=== PATIENT | male | born 1990 | race Caucasian/White ===

== ENCOUNTER 2023-08-01 22:05 | Inpatient (IN) | payer SELFPAY ==
[2023-08-01] MEDS ORDERED: Nitroglycerin 0.4 MG TAB (25 Tab Bottle) ONE (22:20)
[2023-08-01] MEDS ORDERED: Ipratropium/Albuterol 3 ML NEB ONE ×4 (22:20→23:31)
[2023-08-01] MEDS ORDERED: Albuterol 2.5 MG (3 mL) NEB ONE ×2 (22:22→23:32)
[2023-08-01 22:36] LABS: #Basophils 0.07 10x3/uL (0.0-0.2); %Basophils 0.5 % (0.0-1.0); %Eosinophils 2.1 % (0.0-10.0); %Lymphocytes 23.9 % (21.0-51.0); %Monocytes 6.8 % (0.0-10.0); %Neutrophils 66.4 % (42.0-75.0); Hematocrit 49.2 % (42.0-52.0); Hemoglobin 16.8 g/dL (14.0-18.0); Mean Corpuscular HGB CONC 34.1 g/dL (32.0-36.0); Mean Corpuscular Hemoglobin 29.3 pg (27.0-31.0); Mean Corpuscular Volume 85.7 fL (78.0-98.0); Mean Platelet Volume 9.9 fL (7.4-10.4); Platelet Count 288 10x3/uL (130-400); RBC Distribution Width 13.4 % (11.5-14.5); Red Blood Cell (RBC) Count 5.74 mill/uL (4.70-6.10)
[2023-08-01] MEDS ORDERED: Azithromycin 250 MG TAB ONE (22:56)
[2023-08-01] MEDS ORDERED: cefTRIAXone (ROCEPHIN) 1 GM VIAL ONE (22:56)
[2023-08-01] MEDS ORDERED: Sodium Chloride 0.9% 100 ML ONE (22:56)
[2023-08-01 22:59] LABS: ALT (SGPT) 57 U/L (8-55); AST (SGOT) 42 U/L (5-34); Albumin 3.8 g/dL (3.5-5.0); Alkaline Phosphatase 80 U/L (40-110); Anion Gap 13 mmol/L (10-20); BUN (Urea Nitrogen) 18 mg/dL (8.9-20.6); Bilirubin, Total 1.4 mg/dL (0.2-1.2); Calc. Creatinine Clearance 0 mL/min (70-130); Calcium 9.3 mg/dL (7.8-10.44); Carbon Dioxide 27 mmol/L (22-29); Chloride 101 mmol/L (98-107); Estimated GFR 54; Globulin 4.2 g/dL (2.4-3.5); Glucose 135 mg/dL (70-105); Lipase 15 U/L (8-78); Potassium 3.6 mmol/L (3.5-5.1); Sodium 137 mmol/L (136-145)
[2023-08-01 23:01] LABS: Troponin I 0.075 ng/mL (< 0.028)
[2023-08-01] MEDS ORDERED: Aspirin Chewable 81 MG TAB ONE (23:14)
[2023-08-01] MEDS ORDERED: Furosemide 40 MG (4 mL) VIAL ONE (23:34)
[2023-08-02] MEDS ORDERED: Labetalol HCl 100 MG/20 ML VIAL ONE (01:13)
[2023-08-02 01:44] LABS: Troponin I 0.054 ng/mL (< 0.028)
[2023-08-02] MEDS ORDERED: Dextrose 50% Abboject 50 ML SYRINGE SLOW IVP PRN (01:47)
[2023-08-02] MEDS ORDERED: HumaLOG 300 UNITS/3 ML VIAL SC PRN (01:47)
[2023-08-02] MEDS ORDERED: Glucagon 1 MG/ML KIT IM PRN (01:47)
[2023-08-02] MEDS ORDERED: Dextrose 5% in Water 1,000 ML IV PRN (01:47)
[2023-08-02] MEDS ORDERED: hydrALAZINE 25 MG TAB PO PRN (01:49)
[2023-08-02 02:17] VITALS: BMI 53.7
[2023-08-02] MEDS: cefTRIAXone\\ROCEPHIN 1 GM in Sodium Chloride 0.9% 100 ML IVPB SCH (02:44)
[2023-08-02 02:59] LABS: Base Excess -0.6 mEq/L (-2.0 to +3.0); Calcium, Ionized (venous) 1.09 mmol/L (1.16-1.32); Chloride (VBG) 100 mmol/L (98-106); Hematocrit-VBG 47 % (42.0-52.0); Hemoglobin (Hb) 15.9 g/dL (13.2-17.3); Potassium (VBG) 3.39 mmol/L (3.70-5.30); Sodium 137 mmol/L (133-146); pH (venous) 7.435 (7.32-7.43)
[2023-08-02 03:25] LABS: #Basophils 0.07 10x3/uL (0.0-0.2); %Basophils 0.5 % (0.0-1.0); %Lymphocytes 19.9 % (21.0-51.0); %Neutrophils 71.2 % (42.0-75.0); Hematocrit 44.2 % (42.0-52.0); Mean Corpuscular HGB CONC 33.9 g/dL (32.0-36.0); Mean Corpuscular Hemoglobin 29.1 pg (27.0-31.0); Mean Corpuscular Volume 85.8 fL (78.0-98.0); Mean Platelet Volume 9.8 fL (7.4-10.4); Platelet Count 276 10x3/uL (130-400); RBC Distribution Width 13.5 % (11.5-14.5); Red Blood Cell (RBC) Count 5.15 mill/uL (4.70-6.10)
[2023-08-02] MEDS: hydrALAZINE 20 MG/ML VIAL SLOW IVP PRN (03:41)
[2023-08-02 03:48] LABS: Hemoglobin A1c 8.4 % (4.0-6.0)
[2023-08-02] MEDS: Amlodipine 5 MG TAB PO SCH (03:51)
[2023-08-02 03:53] LABS: Cardiac Risk 4.1 (Less than 4.5)
[2023-08-02 03:54] LABS: ALT (SGPT) 51 U/L (8-55); AST (SGOT) 34 U/L (5-34); Albumin 3.5 g/dL (3.5-5.0); Alkaline Phosphatase 70 U/L (40-110); Anion Gap 15 mmol/L (10-20); BUN (Urea Nitrogen) 19 mg/dL (8.9-20.6); Calc. Creatinine Clearance 171 mL/min (70-130); Calcium 9.2 mg/dL (7.8-10.44); Carbon Dioxide 23 mmol/L (22-29); Chloride 101 mmol/L (98-107); Estimated GFR 54; Globulin 3.8 g/dL (2.4-3.5); Glucose 146 mg/dL (70-105); Potassium 3.3 mmol/L (3.5-5.1); Protein, Total 7.3 g/dL (6.0-8.3); Sodium 136 mmol/L (136-145)
[2023-08-02 04:55] LABS: Legionella Urinary Ag Negative (Negative)
[2023-08-02 05:04] LABS: Troponin I 0.067 ng/mL (< 0.028)
[2023-08-02] MEDS: Furosemide 40 MG (4 mL) VIAL SLOW IVP SCH (05:35)
[2023-08-02] MEDS: Potassium Chloride 20 MEQ TAB PO SCH (05:35)
[2023-08-02 06:27] LABS: Phosphorus 4.3 mg/dL (2.3-4.7)
[2023-08-02] MEDS: Ipratropium/Albuterol 3 ML NEB NEB SCH (07:10)
[2023-08-02] MEDS: Budesonide 0.25 MG/2 ML NEB INH SCH (07:13)
[2023-08-02] MEDS: Enoxaparin 40 MG (0.4 mL) SYRINGE SC SCH (08:35)
[2023-08-02] MEDS: Aspirin Chewable 81 MG TAB PO SCH (08:38)
[2023-08-02] MEDS: NIFEdipine XL 60 MG ER.TAB PO SCH (08:38)
[2023-08-02] MEDS ORDERED: Aspirin 81 mg Enteric Coated Tablet PO SCH (09:00)
[2023-08-02] MEDS ORDERED: hydrALAZINE 25 MG TAB PO SCH (09:00)
[2023-08-02] MEDS ORDERED: Amlodipine 5 MG TAB PO SCH (09:00)
[2023-08-02] MEDS ORDERED: Empagliflozin 10 MG TAB PO SCH (09:00)
[2023-08-02] MEDS: Doxycycline 100 MG in Sodium Chloride 0.9% 100 ML IVPB SCH (10:04)
[2023-08-02] MEDS: HumaLOG 300 UNITS/3 ML VIAL SC PRN (13:04)
[2023-08-03] MEDS: Acetaminophen 325 MG TAB PO PRN (00:13)
[2023-08-03] MEDS ORDERED: methylPREDNISolone Sod Succ 40 MG VIAL IVP SCH (09:00)
[2023-08-03 11:20] LABS: #Basophils 0.08 10x3/uL (0.0-0.2); %Basophils 0.6 % (0.0-1.0); %Eosinophils 1.9 % (0.0-10.0); %Lymphocytes 14.6 % (21.0-51.0); %Monocytes 5.5 % (0.0-10.0); %Neutrophils 76.9 % (42.0-75.0); Hematocrit 48.9 % (42.0-52.0); Hemoglobin 16.7 g/dL (14.0-18.0); Mean Corpuscular HGB CONC 34.2 g/dL (32.0-36.0); Mean Corpuscular Hemoglobin 29.2 pg (27.0-31.0); Mean Corpuscular Volume 85.5 fL (78.0-98.0); Mean Platelet Volume 9.6 fL (7.4-10.4); Platelet Count 300 10x3/uL (130-400); RBC Distribution Width 13.6 % (11.5-14.5); Red Blood Cell (RBC) Count 5.72 mill/uL (4.70-6.10)
[2023-08-03 11:40] LABS: ALT (SGPT) 43 U/L (8-55); AST (SGOT) 27 U/L (5-34); Albumin 3.7 g/dL (3.5-5.0); Alkaline Phosphatase 62 U/L (40-110); Anion Gap 15 mmol/L (10-20); BUN (Urea Nitrogen) 16 mg/dL (8.9-20.6); Bilirubin, Total 1.3 mg/dL (0.2-1.2); Calc. Creatinine Clearance 193 mL/min (70-130); Calcium 9.3 mg/dL (7.8-10.44); Carbon Dioxide 24 mmol/L (22-29); Chloride 100 mmol/L (98-107); Estimated GFR 68; Globulin 4.2 g/dL (2.4-3.5); Glucose 154 mg/dL (70-105); Potassium 3.7 mmol/L (3.5-5.1); Protein, Total 7.9 g/dL (6.0-8.3); Sodium 135 mmol/L (136-145)
[2023-08-03] MEDS: Ipratropium/Albuterol 3 ML NEB NEB PRN (18:58)
[2023-08-03] MEDS: cefTRIAXone\\ROCEPHIN 1 GM in Sodium Chloride 0.9% 100 ML IVPB SCH (20:25)
[2023-08-04] MEDS: HYDROcodone/Acetaminophen 5/325 mg Tablet PO PRN (04:33)
[2023-08-04] MEDS ORDERED: Lisinopril 20 MG TAB PO SCH ×2 (10:10→21:00)
[2023-08-04] MEDS ORDERED: NIFEdipine XL 60 MG ER.TAB PO SCH (10:10)
[2023-08-04] MEDS ORDERED: NIFEdipine XL 90 MG ER.TAB PO SCH (10:30)
[2023-08-04 11:54] VITALS: TEMP 98.2
[2023-08-04] MEDS: Lisinopril 20 MG TAB PO SCH (12:19)
[2023-08-04] MEDS: NIFEdipine XL 30 MG ER.TAB PO SCH (12:33)
[2023-08-04 15:02] VITALS: BP 158/81
[2023-08-05] MEDS ORDERED: FLU VACC QS2023-24(6MOS UP)/PF 60 MCG/0.5 ML SYRINGE IM ONE (09:00)
[2023-08-05] MEDS ORDERED: NIFEdipine XL 90 MG ER.TAB PO SCH (09:00)
[2023-08-06 22:38] LABS: Mycoplasma pneumoniae IgG AB 199 U/mL (0-99); Mycoplasma pneumoniae IgM AB 974 U/mL (0-769)
== END 2023-08-04 16:45 | disposition home or self-care (01) | DRG 280 ==
LOC: ERS 22:05 → 2SW 08-02 00:26
PROVIDERS: ADMIT Internal Medicine; ATTEND Emergency Medicine
DX: I11.0 Hypertensive heart disease with heart failure (principal); I21.A1 Myocardial infarction type 2; A41.9 Sepsis, unspecified organism; J18.9 Pneumonia, unspecified organism; I50.33 Acute on chronic diastolic (congestive) heart failure; I16.1 Hypertensive emergency; N17.9 Acute kidney failure, unspecified; G47.33 Obstructive sleep apnea (adult) (pediatric); E11.9 Type 2 diabetes mellitus without complications; E66.01 Morbid (severe) obesity due to excess calories; K21.9 Gastro-esophageal reflux disease without esophagitis; B34.9 Viral infection, unspecified; Z79.82 Long term (current) use of aspirin; Z79.899 Other long term (current) drug therapy
CPT/HCPCS: 36415; 36416; 71045; 74176; 76705; 80053; 80061; 82805; 83036; 83605; 83690; 83735; 83880; 84100; 84145; 84484; 85025; 87040; 87633; 87807; 87899; 93005; 93306; 93798; 93970; 94640; 94760; 96365; 96375; J0360; J0696; J1650; J1815; J1940; J3490; J7611; J7620; J7626

== ENCOUNTER 2024-04-07 19:56 | Inpatient (IN) | payer SELFPAY ==
[2024-04-07 21:01] LABS: #Basophils 0.12 10x3/uL (0.0-0.2); %Eosinophils 2.1 % (0.0-10.0); %Lymphocytes 25.2 % (21.0-51.0); %Monocytes 5.8 % (0.0-10.0); %Neutrophils 65.3 % (42.0-75.0); Hematocrit 48.4 % (42.0-52.0); Mean Corpuscular HGB CONC 35.1 g/dL (32.0-36.0); Mean Corpuscular Hemoglobin 30.1 pg (27.0-31.0); Mean Corpuscular Volume 85.7 fL (78.0-98.0); Mean Platelet Volume 9.9 fL (7.4-10.4); Platelet Count 255 10x3/uL (130-400); RBC Distribution Width 13.4 % (11.5-14.5); Red Blood Cell (RBC) Count 5.65 mill/uL (4.70-6.10)
[2024-04-07 21:18] LABS: ALT (SGPT) 35 U/L (8-55); AST (SGOT) 32 U/L (5-34); Albumin 3.4 g/dL (3.5-5.0); Alkaline Phosphatase 83 U/L (40-110); Anion Gap 13 mmol/L (10-20); BUN (Urea Nitrogen) 18 mg/dL (8.9-20.6); Bilirubin, Total 0.5 mg/dL (0.2-1.2); Calc. Creatinine Clearance 0 mL/min (70-130); Calcium 8.8 mg/dL (7.8-10.44); Carbon Dioxide 28 mmol/L (22-29); Chloride 98 mmol/L (98-107); Estimated GFR 49; Globulin 4.5 g/dL (2.4-3.5); Glucose 246 mg/dL (70-105); Potassium 3.8 mmol/L (3.5-5.1); Protein, Total 7.9 g/dL (6.0-8.3); Sodium 135 mmol/L (136-145)
[2024-04-07 21:24] LABS: Troponin I 0.094 ng/mL (< 0.028)
[2024-04-07] MEDS ORDERED: Losartan 25 MG TAB ONE (21:39)
[2024-04-07] MEDS ORDERED: hydrALAZINE 20 MG/ML VIAL ONE (22:10)
[2024-04-07] MEDS ORDERED: Ondansetron PF 4 MG/2 ML Vial IVP PRN (22:52)
[2024-04-07] MEDS ORDERED: Glucagon 1 MG/ML KIT IM PRN (22:54)
[2024-04-07] MEDS ORDERED: Dextrose 50% Abboject 50 ML SYRINGE SLOW IVP PRN (22:54)
[2024-04-07] MEDS ORDERED: Insulin Lispro 100 UNIT/ML 10 ML VIAL SC PRN (22:54)
[2024-04-07] MEDS ORDERED: Dextrose 5% in Water 1,000 ML IV PRN (22:54)
[2024-04-07] MEDS ORDERED: niCARdipine 25 MG/10 ML SDV ONE (22:58)
[2024-04-08] MEDS: Hydrochlorothiazide 25 MG TAB PO SCH ×2 (00:41→08:39)
[2024-04-08] MEDS: Furosemide 20 MG (2 mL) VIAL SLOW IVP SCH ×2 (00:41→08:39)
[2024-04-08 00:47] VITALS: BMI 53.8
[2024-04-08 01:29] LABS: Troponin I 0.076 ng/mL (< 0.028)
[2024-04-08 03:28] LABS: #Basophils 0.13 10x3/uL (0.0-0.2); %Basophils 0.9 % (0.0-1.0); %Eosinophils 1.4 % (0.0-10.0); %Lymphocytes 21.3 % (21.0-51.0); %Monocytes 6.8 % (0.0-10.0); %Neutrophils 69.2 % (42.0-75.0); Hematocrit 48.7 % (42.0-52.0); Mean Corpuscular HGB CONC 34.9 g/dL (32.0-36.0); Mean Corpuscular Hemoglobin 30.3 pg (27.0-31.0); Mean Corpuscular Volume 86.8 fL (78.0-98.0); Mean Platelet Volume 10.2 fL (7.4-10.4); Platelet Count 260 10x3/uL (130-400); RBC Distribution Width 13.4 % (11.5-14.5); Red Blood Cell (RBC) Count 5.61 mill/uL (4.70-6.10)
[2024-04-08] MEDS: niCARdipine 25 MG in Sodium Chloride 0.9% 250 ML 250 ML IVPB SCH (03:42)
[2024-04-08 03:51] LABS: Anion Gap 13 mmol/L (10-20); BUN (Urea Nitrogen) 17 mg/dL (8.9-20.6); Calc. Creatinine Clearance 171 mL/min (70-130); Calcium 8.7 mg/dL (7.8-10.44); Carbon Dioxide 26 mmol/L (22-29); Chloride 97 mmol/L (98-107); Estimated GFR 56; Glucose 214 mg/dL (70-105); Potassium 3.1 mmol/L (3.5-5.1); Sodium 133 mmol/L (136-145)
[2024-04-08 03:57] LABS: Troponin I 0.083 ng/mL (< 0.028)
[2024-04-08] MEDS: Insulin Lispro 100 UNIT/ML 10 ML VIAL SC PRN (06:51)
[2024-04-08] MEDS: Heparin 5,000 UNITS/ML VIAL SC SCH (08:38)
[2024-04-08] MEDS: Potassium Chloride 20 MEQ TAB PO SCH (08:38)
[2024-04-08] MEDS: Losartan 25 MG TAB PO SCH (08:39)
[2024-04-08] MEDS: Amlodipine 5 MG TAB PO SCH ×2 (10:19→20:46)
[2024-04-08] MEDS: cloNIDine 0.1 MG TAB PO PRN (10:19)
[2024-04-08] MEDS: hydrALAZINE 25 MG TAB PO SCH ×2 (14:49→20:47)
[2024-04-08] MEDS: Perflutren Lipid Microspheres 1.1 MG/ML VIAL ONE (14:58)
[2024-04-08] MEDS: Budesonide 0.5 MG/2 ML NEB INH SCH (18:30)
[2024-04-08] MEDS: Insulin Glargine 30 UNITS/0.3 ML VIAL SC SCH (20:48)
[2024-04-09] MEDS ORDERED: Labetalol HCl 100 MG/20 ML VIAL SLOW IVP PRN (04:28)
[2024-04-09] MEDS ORDERED: hydrALAZINE 20 MG/ML VIAL SLOW IVP PRN (04:28)
[2024-04-09 05:05] LABS: %Basophils 0.7 % (0.0-1.0); %Eosinophils 2.6 % (0.0-10.0); %Lymphocytes 24.5 % (21.0-51.0); %Monocytes 6.6 % (0.0-10.0); %Neutrophils 65.1 % (42.0-75.0); Hematocrit 49.1 % (42.0-52.0); Hemoglobin 17.1 g/dL (14.0-18.0); Mean Corpuscular HGB CONC 34.8 g/dL (32.0-36.0); Mean Corpuscular Hemoglobin 30.2 pg (27.0-31.0); Mean Corpuscular Volume 86.7 fL (78.0-98.0); Mean Platelet Volume 10.1 fL (7.4-10.4); Platelet Count 270 10x3/uL (130-400); RBC Distribution Width 13.2 % (11.5-14.5); Red Blood Cell (RBC) Count 5.66 mill/uL (4.70-6.10)
[2024-04-09 05:25] LABS: Anion Gap 13 mmol/L (10-20); BUN (Urea Nitrogen) 18 mg/dL (8.9-20.6); Calc. Creatinine Clearance 203 mL/min (70-130); Carbon Dioxide 25 mmol/L (22-29); Chloride 100 mmol/L (98-107); Estimated GFR 70; Glucose 168 mg/dL (70-105); Potassium 3.3 mmol/L (3.5-5.1); Sodium 135 mmol/L (136-145)
[2024-04-09] MEDS ORDERED: Amlodipine 5 MG TAB PO SCH (09:00)
[2024-04-09] MEDS ORDERED: Benzonatate 100 MG CAP PO PRN (10:46)
[2024-04-09] MEDS ORDERED: Albuterol 2.5 MG (3 mL) NEB NEB PRN (11:24)
[2024-04-09] MEDS ORDERED: NIFEdipine XL 60 MG ER.TAB PO SCH (11:30)
[2024-04-09] MEDS: NIFEdipine XL 60 MG ER.TAB PO SCH ×2 (11:40→20:24)
[2024-04-09] MEDS: Potassium Chloride 20 MEQ TAB PO SCH (11:40)
[2024-04-09] MEDS: hydrALAZINE 25 MG TAB PO SCH (15:22)
[2024-04-09] MEDS: metFORMIN 500 MG TAB PO SCH (17:05)
[2024-04-09] MEDS: Losartan 25 MG TAB PO SCH (20:24)
[2024-04-09] MEDS: Acetaminophen 325 MG TAB PO PRN (23:53)
[2024-04-10 05:35] LABS: %Basophils 0.7 % (0.0-1.0); %Eosinophils 2.5 % (0.0-10.0); %Lymphocytes 28.3 % (21.0-51.0); %Monocytes 6.6 % (0.0-10.0); %Neutrophils 61.4 % (42.0-75.0); Hematocrit 49.1 % (42.0-52.0); Mean Corpuscular HGB CONC 34.6 g/dL (32.0-36.0); Mean Corpuscular Volume 86.7 fL (78.0-98.0); Mean Platelet Volume 10.3 fL (7.4-10.4); Platelet Count 270 10x3/uL (130-400); RBC Distribution Width 13.2 % (11.5-14.5); Red Blood Cell (RBC) Count 5.66 mill/uL (4.70-6.10)
[2024-04-10 06:36] LABS: Anion Gap 14 mmol/L (10-20); BUN (Urea Nitrogen) 22 mg/dL (8.9-20.6); Calc. Creatinine Clearance 190 mL/min (70-130); Carbon Dioxide 23 mmol/L (22-29); Chloride 99 mmol/L (98-107); Estimated GFR 64; Glucose 144 mg/dL (70-105); Potassium 3.1 mmol/L (3.5-5.1); Sodium 133 mmol/L (136-145)
[2024-04-10] MEDS: Potassium Chloride 20 MEQ TAB PO SCH (08:41)
[2024-04-10 14:07] VITALS: BP 168/77; TEMP 98.1
== END 2024-04-10 14:11 | disposition home or self-care (01) | DRG 304 ==
LOC: ERS 19:56 → CCU 22:54 → T4-B 04-09 06:07
PROVIDERS: ADMIT Internal Medicine; ATTEND Family Medicine
DX: I16.1 Hypertensive emergency (principal); I50.33 Acute on chronic diastolic (congestive) heart failure; Z68.43 Body mass index [BMI] 50.0-59.9, adult; N17.9 Acute kidney failure, unspecified; I24.89 Other forms of acute ischemic heart disease; F41.9 Anxiety disorder, unspecified; E11.65 Type 2 diabetes mellitus with hyperglycemia; E66.01 Morbid (severe) obesity due to excess calories; E78.1 Pure hyperglyceridemia; E11.22 Type 2 diabetes mellitus with diabetic chronic kidney disease; I13.0 Hypertensive heart and chronic kidney disease with heart failure and stage 1 through stage 4 chronic kidney disease, or unspecified chronic kidney disease; N18.30 Chronic kidney disease, stage 3 unspecified; Z91.041 Radiographic dye allergy status; Z91.148 Patient's other noncompliance with medication regimen for other reason
CPT/HCPCS: 0439T; 36415; 36416; 71045; 80048; 80053; 83036; 83690; 83735; 83880; 84443; 84484; 85025; 93005; 94640; 96374; 96375; J0360; J1644; J1815; J1940; J7050; J7626; Q9957

== ENCOUNTER 2024-04-15 09:53 | Inpatient (IN) | payer OTHER, SELFPAY ==
[2024-04-15] MEDS ORDERED: Ketorolac Tromethamine 30 MG (1 mL) VIAL ONE (10:28)
[2024-04-15] MEDS ORDERED: Lidocaine 4% Patch ONE (10:28)
[2024-04-15 10:52] LABS: #Basophils 0.11 10x3/uL (0.0-0.2); %Basophils 0.7 % (0.0-1.0); %Eosinophils 0.3 % (0.0-10.0); %Lymphocytes 8.6 % (21.0-51.0); %Monocytes 6.8 % (0.0-10.0); %Neutrophils 83.2 % (42.0-75.0); Hematocrit 50.7 % (42.0-52.0); Mean Corpuscular HGB CONC 33.5 g/dL (32.0-36.0); Mean Corpuscular Hemoglobin 30.5 pg (27.0-31.0); Mean Platelet Volume 10.1 fL (7.4-10.4); Platelet Count 284 10x3/uL (130-400); RBC Distribution Width 12.9 % (11.5-14.5); Red Blood Cell (RBC) Count 5.57 mill/uL (4.70-6.10)
[2024-04-15 11:14] LABS: ALT (SGPT) 38 U/L (8-55); AST (SGOT) 38 U/L (5-34); Albumin 3.9 g/dL (3.5-5.0); Alkaline Phosphatase 58 U/L (40-110); Anion Gap 17 mmol/L (10-20); BUN (Urea Nitrogen) 34 mg/dL (8.9-20.6); Bilirubin, Total 0.8 mg/dL (0.2-1.2); Calc. Creatinine Clearance 0 mL/min (70-130); Calcium 9.5 mg/dL (7.8-10.44); Carbon Dioxide 17 mmol/L (22-29); Chloride 103 mmol/L (98-107); Estimated GFR 34; Globulin 4.8 g/dL (2.4-3.5); Glucose 132 mg/dL (70-105); Lipase 26 U/L (8-78); Protein, Total 8.7 g/dL (6.0-8.3); Sodium 132 mmol/L (136-145)
[2024-04-15 11:18] LABS: Bacteria/HPF None Seen HPF (None Seen); Bilirubin Negative (Negative); Blood, Urine 2+ (Negative); CAUTI Indications for Culture Pelvic or flank pain; Clarity Extra Turbid (Clear); Glucose, Urine (Dipstick) 50 mg/dL (Negative); Ketone, Urine 10 mg/dL (Negative); Leukocyte Negative Leu/uL (Negative); Nitrite Negative (Negative); Protein, Urine (Dipstick) 200 mg/dL (Neg-Trace); RBC/HPF 21-50 HPF (0-3); Specific Gravity, Urine 1.022 (1.002-1.036); Squamous Epithelial 0-3 HPF (0-3); Urobilinogen Normal mg/dL (Less than 2); WBC/HPF 0-3 HPF (0-3); pH, Urine 5.5 (5.0-9.0)
[2024-04-15 11:19] LABS: Urine Culture Reflex No No
[2024-04-15] MEDS ORDERED: HYDROcodone/Acetaminophen 5/325 mg Tablet ONE (11:24)
[2024-04-15] MEDS ORDERED: Glucagon 1 MG/ML KIT IM PRN (12:29)
[2024-04-15] MEDS ORDERED: Ondansetron PF 4 MG/2 ML Vial IVP PRN (12:29)
[2024-04-15] MEDS ORDERED: Acetaminophen 325 MG TAB PO PRN (12:29)
[2024-04-15] MEDS ORDERED: Insulin Regular, Human 100 UNIT/ML 10 ML VIAL SC PRN (12:29)
[2024-04-15] MEDS ORDERED: Dextrose 50% Abboject 50 ML SYRINGE SLOW IVP PRN (12:29)
[2024-04-15] MEDS ORDERED: Dextrose 5% in Water 1,000 ML IV PRN (12:29)
[2024-04-15] MEDS: Sodium Chloride 0.9% 1,000 ML IV SCH (14:21)
[2024-04-15 15:34] VITALS: BMI 27.2
[2024-04-15] MEDS: hydrALAZINE 25 MG TAB PO SCH (20:04)
[2024-04-15] MEDS: NIFEdipine XL 60 MG ER.TAB PO SCH (20:04)
[2024-04-15] MEDS: Losartan 25 MG TAB PO SCH (20:04)
[2024-04-15] MEDS: Insulin Glargine 30 UNITS/0.3 ML VIAL SC SCH (20:04)
[2024-04-15] MEDS: HYDROcodone/Acetaminophen 5/325 mg Tablet PO PRN (21:34)
[2024-04-16 05:11] LABS: #Basophils 0.08 10x3/uL (0.0-0.2); %Basophils 0.7 % (0.0-1.0); %Eosinophils 1.8 % (0.0-10.0); %Lymphocytes 20.1 % (21.0-51.0); %Monocytes 8.8 % (0.0-10.0); %Neutrophils 68.2 % (42.0-75.0); Hematocrit 46.6 % (42.0-52.0); Mean Corpuscular HGB CONC 34.3 g/dL (32.0-36.0); Mean Corpuscular Hemoglobin 30.8 pg (27.0-31.0); Mean Corpuscular Volume 89.6 fL (78.0-98.0); Mean Platelet Volume 9.9 fL (7.4-10.4); Platelet Count 244 10x3/uL (130-400); RBC Distribution Width 12.8 % (11.5-14.5)
[2024-04-16 05:29] LABS: Anion Gap 14 mmol/L (10-20); BUN (Urea Nitrogen) 29 mg/dL (8.9-20.6); Calc. Creatinine Clearance 61 mL/min (70-130); Calcium 8.6 mg/dL (7.8-10.44); Carbon Dioxide 20 mmol/L (22-29); Chloride 105 mmol/L (98-107); Estimated GFR 37; Glucose 106 mg/dL (70-105); Potassium 4.1 mmol/L (3.5-5.1); Sodium 135 mmol/L (136-145)
[2024-04-16] MEDS: Enoxaparin 40 MG (0.4 mL) SYRINGE SC SCH (09:07)
[2024-04-16] MEDS: Tamsulosin HCl 0.4 MG CAP PO SCH (09:07)
[2024-04-17 09:14] LABS: Anion Gap 15 mmol/L (10-20); BUN (Urea Nitrogen) 21 mg/dL (8.9-20.6); Calc. Creatinine Clearance 76 mL/min (70-130); Carbon Dioxide 21 mmol/L (22-29); Chloride 105 mmol/L (98-107); Estimated GFR 48; Glucose 96 mg/dL (70-105); Potassium 4.2 mmol/L (3.5-5.1); Sodium 137 mmol/L (136-145)
[2024-04-17 15:35] VITALS: BP 142/83; TEMP 98.2
== END 2024-04-17 15:30 | disposition home or self-care (01) | DRG 683 ==
LOC: ERS 09:53 → MSONC 13:24 → OBSVTOIN 04-16 18:29
PROVIDERS: ADMIT Internal Medicine; ATTEND Hospitalist
DX: N17.9 Acute kidney failure, unspecified (principal); I13.0 Hypertensive heart and chronic kidney disease with heart failure and stage 1 through stage 4 chronic kidney disease, or unspecified chronic kidney disease; I50.32 Chronic diastolic (congestive) heart failure; N20.0 Calculus of kidney; N18.9 Chronic kidney disease, unspecified; N13.9 Obstructive and reflux uropathy, unspecified; E11.22 Type 2 diabetes mellitus with diabetic chronic kidney disease; E66.01 Morbid (severe) obesity due to excess calories; N18.30 Chronic kidney disease, stage 3 unspecified; Z68.27 Body mass index [BMI] 27.0-27.9, adult; F41.9 Anxiety disorder, unspecified; Z79.4 Long term (current) use of insulin; Z79.899 Other long term (current) drug therapy; Z79.84 Long term (current) use of oral hypoglycemic drugs
CPT/HCPCS: 36415; 36416; 74176; 80048; 80053; 81001; 83690; 85025; 96360; 96361; 96372; G0378; J1650; J1815; J1885; J7030